=== PATIENT | female | born 1980 | race Two or more races ===

== ENCOUNTER 2017-08-05 17:38 | Emergency (ER) | payer MEDICAID ==
[~2017-08-05] VITALS: Ht 162.6 cm; Wt 77.1 kg
[2017-08-05 18:12] VITALS: BP 91/58
== END 2017-08-05 20:55 | disposition left against medical advice (07) ==
LOC: ER 17:38
DX: R07.0 Pain in throat (principal); R05 Cough; Z53.21 Procedure and treatment not carried out due to patient leaving prior to being seen by health care provider

== ENCOUNTER 2023-06-05 00:26 | Emergency (ER) | payer MEDICAID ==
[~2023-06-05] VITALS: Ht 160 cm; Wt 68.2 kg
[2023-06-05 00:39] VITALS: BP 140/66; RESP 17; O2SAT 99
[2023-06-05 00:45] VITALS: PULSE 98
[2023-06-05] MEDS ORDERED: ASPirin 81 mg TAB PO ONE (00:45)
[2023-06-05 01:02] LABS: Basophils # (auto) 0 10 ^3/uL (0-0.2); Basophils % (auto) 0.9 % (0.0-2.0); Eosinophils # (auto) 0.4 10 ^3/uL (0-0.8); Eosinophils % (auto) 6.5 % (0.0-7.0); Hematocrit 27.8 % (36.0-46.0); Hemoglobin 8.5 g/dL (12.2-16.2); Lymphocytes % (auto) 17.7 % (10.0-50.0); Mean Corpuscular Hemoglobin 20.8 pg (28.0-32.0); Mean Corpuscular Hgb Conc. 30.7 g/dL (32.0-36.0); Mean Corpuscular Volume 67.6 fL (80.0-100.0); Monocytes # (auto) 0.5 10 ^3/uL (0-1.3); Neutrophils # (auto) 3.6 10 ^3/uL (1.6-8.6); Neutrophils % (auto) 64.9 % (37.0-80.0); Nucleated Red Blood Cells % 0.1 %; Red Blood Cells 4.11 10^6/uL (4.0-5.20); Red Cell Distribution Width 18.8 % (11.8-14.3); White Blood Cell 5.5 10^3/uL (4.4-10.8)
[2023-06-05 01:10] LABS: Chloride 109 mmol/L (98-107); Potassium 3.6 mmol/L (3.5-5.1); Sodium 137 mmol/L (136-145)
[2023-06-05 01:11] LABS: Anion Gap 5 (5-15); Calcium 8.3 mg/dL (8.7-10.4); Carbon Dioxide 23 mmol/L (20-30)
[2023-06-05 01:16] LABS: Blood Urea Nitrogen 13 mg/dL (9-23); Glucose 112 mg/dL (74-106)
[2023-06-05 01:27] LABS: Hypochromia Marked; Platelet Estimate Adequate
[2023-06-05] MEDS ORDERED: IOHEXOL 350 MG/ML 100ML IJ ONE (03:22)
== END 2023-06-05 05:26 | disposition left against medical advice (07) ==
LOC: ER 00:26
DX: R07.89 Other chest pain (principal); J45.909 Unspecified asthma, uncomplicated
CPT/HCPCS: 36415; 71046; 80048; 85025; 85379; 93005

== ENCOUNTER 2024-12-29 14:00 | Emergency (ER) | payer MEDICAID, OTHER ==
[~2024-12-29] VITALS: Ht 160 cm; Wt 78.5 kg
--- NOTE | 2024-12-29 14:48 | ED.PDOC ---
SOB-HPI HPI Comments 44y F who presents to the ED for chief complaint of shortness of breath. Pt states she was outside walking with son in hot weather and states she started to have shortness of breath with associated chest wall pains and pain radiating to the L shoulder. Pt has noted history of asthma and uses her inhaler as needed but states she ran out of her inhaler and came to the ED for further evaluation. Pt in the ED, otherwise denies any other symptoms and no noted respiratory distress. pt noted to have 02 sat of 98% on room air. Pt denies any other symptoms at this time. 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 Family History Family History: Family hx of DM Social History Smoker: Non-Smoker Alcohol: Denies ETOH Use Drugs: Marijuana Lives In: Home Constitutional: denies: chills, diaphoresis, fatigue, fever, malaise, sweats, weakness, others EENTM: denies: blurred vision, double vision, ear bleeding, ear discharge, ear drainage, ear pain, ear ringing, eye pain, eye redness, hearing loss, mouth pain, mouth swelling, nasal discharge, nose bleeding, nose congestion, nose pain, photophobia, tearing, throat pain, throat swelling, voice changes, others Respiratory: reports: shortness of breath; denies: cough, hemoptysis, orthopnea, SOB at rest, SOB with excertion, stridor, wheezing, others Cardiovascular: denies: chest pain, dizzy spells, diaphoresis, Dyspnea on exertion, edema, irregular heart beat, left arm pain, lightheadedness, palpitations, PND, syncope, others Gastrointestinal: denies: abdomen distended, abdominal pain, blood streaked bowels, constipated, diarrhea, dysphagia, difficulty swallowing, hematemesis, melena, nausea, poor appetite, poor fluid intake, rectal bleeding, rectal pain, vomiting, others Genitourinary: denies: abnormal vagina bleeding, burning, dyspareunia, dysuria, flank pain, frequency, hematuria, incontinence, pain, , vagina discharge, urgency, others Neurological: denies: dizziness, fainting, headache, left sided numbness, left sided weakness, numbness, paresthesia, pre-existing deficit, right sided numbness, right sided weakness, seizure, speech problems, tingling, tremors, weakness, others Musculoskeletal: denies: back pain, gout, joint pain, joint swelling, muscle pain, muscle stiffness, neck pain, others Integumetry: denies: bruises, change in color, change in hair/nails, dryness, laceration, lesions, lumps, rash, wounds, others Allergic/Immunocompromised: denies: Difficulty Healing, Frequent Infections, Hives, Itching, others Hematologic/Lymphatic: denies: anemia, blood clots, easy bleeding, easy bruising, swollen glands, others Endocrine: denies: excessive hunger, excessive sweating, excessive thirst, excessive urination, flushing, intolerance to cold, intolerance to heat, unexplained weight gain, unexplained weight loss, others Psychiatric: denies: anxiety, bipolar disorder, depression, hopeless, panic disorder, schizophrenia, sleepless, suicidal, others All Other Systems: Reviewed and Negative Physical Exam General Appearance: No Apparent Distress, Normal HEENT: Normal ENT Inspection, Pharynx Normal, TMs Normal Neck: Full Range of Motion, Non-Tender, Normal, Normal Inspection Respiratory: Chest Non-Tender, No Accessory Muscle Use, No Respiratory Distress, Other (Bilateral end expiratory wheezes, good air flow) Cardiovascular: No Edema, No JVD, No Murmur, No Gallop, Normal Peripheral Pulses, Regular Rate/Rhythm Breast Exam: Deferred Gastrointestinal: No Organomegaly, Non Tender, No Pulsatile Mass, Normal Bowel Sounds, Soft Genitalia: Deferred Pelvic: Deferred Rectal: Deferred Extremities: No calf tenderness, Normal capillary refill, Normal inspection, Normal range of motion, Non-tender, No pedal edema Musculoskeletal : Apperance: Normal Neurologic: Alert, physical therapist assistant II-XII nml as Tested, No Motor Deficits, Normal Affect, Normal Mood, No Sensory Deficits Cerebellar Function: Normal Reflexes: Normal Skin: Dry, Normal Color, Warm Lymphatic: No Adenopathy Was a procedure done? Was a procedure done?: No Differential Dx Differential Diagnosis: Asthma, Bronchitis, Pneumonia, Respiratory Distress, Pharyngitis, URI X-Ray, Labs, Meds, VS Vital Signs Date Time Temp Pulse Resp B/P (MAP) Pulse Ox O2 Delivery O2 Flow Rate FiO2 12/29/24 16:47 98.7 88 16 129/89 (102) 99 98.7 12/29/24 16:47 88 16 99 Room Air 12/29/24 14:56 20 100 Room Air* 0 21 12/29/24 14:14 98 12/29/24 14:01 97.5 111 24 141/76 98 97.5 Current Medications Medications (Trade) Dose Ordered Sig/Agus Route Start Time Stop Time Status Last Admin Albuterol (Ventolin Medneb) 5 mg ONCE ONCE NEB 12/29/24 14:45 12/29/24 14:46 DC 12/29/24 14:56 Ipratropium [place] (Atrovent Medneb) 1 mg ONCE ONCE HHN 12/29/24 14:45 12/29/24 14:46 DC 12/29/24 14:56 Prednisone 40 mg ONCE ONCE PO 12/29/24 14:45 12/29/24 14:46 DC 12/29/24 16:45 X-Ray, Labs, Meds, VS Comment Patient presentation is most consistent with acute asthma exacerbation for which the patient has received albuterol, ipratropium, steroids with significant improvement in his pulmonary exam and symptoms. Patient now without hypoxia or tachypnea and able to ambulate without shortness of breath. Given these findings, will plan to discharge the patient home with close PMD follow-up within 1-2 weeks. Patient will be discharged with prescription for albuterol, spacer training, 4 day course of prednisone. Reviewed return precautions including, but not limited to worsening tachypnea, fever > 100.4, and altered mental status. Patient is in agreement with the plan and all questions have been answered. Considered CHF exacerbation, pneumonia, anaphylaxis, pulmonary embolism, DKA, pneumothorax, tamponade, but consider these to be less likely based on history/physical/evaluation as above. Time of 1ST Reevaluation: 15:30 Reevaluation 1ST: Improved Time of 2ND Reevaluation: 17:32 Reevaluation 2ND: Improved Patient Education/Counseling: Diagnosis, Treatment Family Education/Counseling: No Family Present SEPSIS Sepsis Screen Date sepsis recognized/suspect: Dec 29, 2024 Time Sepsis recognized/suspect: 1403 Recent Procedure: No On Antibiotic Therapy: No Respiratory Rate >20: Yes Heart Rate >90: Yes Temp<36 C (96.8 F) or >38.3 C: No SBP <90 or MAP <65 mmHG: No New Acute Mental Status Change: No Is the patient on CPAP, BIPAP,: No Physician Orders Electrocardigram (12/29/24 14:19) Vital Signs Date Time Temp Pulse Resp B/P (MAP) Pulse Ox O2 Delivery O2 Flow Rate FiO2 12/29/24 16:47 98.7 88 16 129/89 (102) 99 98.7 12/29/24 16:47 88 16 99 Room Air 12/29/24 14:56 20 100 Room Air* 0 21 12/29/24 14:14 98 12/29/24 14:01 97.5 111 24 141/76 98 97.5 Medications Medications Dose Ordered Sig/Agus Route Start Time Stop Time Status Last Admin Dose Admin Albuterol 5 mg ONCE ONCE NEB 12/29/24 14:45 12/29/24 14:46 DC 12/29/24 14:56 Ipratropium [place] 1 mg ONCE ONCE HHN 12/29/24 14:45 12/29/24 14:46 DC 12/29/24 14:56 Prednisone 40 mg ONCE ONCE PO 12/29/24 14:45 12/29/24 14:46 DC 12/29/24 16:45 Departure 1 Departure Time of Disposition: 17:33 Impression: Primary Impression: Asthma exacerbation Disposition: 01 HOME / SELF CARE / HOMELESS Condition: Stable e-Prescriptions Albuterol Sulfate (VENTOLIN MDI) 90 Mcg Ih 90 MCG IN Q4HPRN PRN for 5 Days, #1 INH Prov: KAREEM MEDEL MD 12/29/24 Prednisone (Prednisone) 20 Mg Tab 40 MG PO DAILY for 4 Days, #8 TAB Prov: KAREEM MEDEL MD 12/29/24 Discharged With: Self Critical Care Note Critical Care Time?: No Stability Stability form required: No Heart Score Heart Score: Heart Score Response (Comments) Value History N/A 0 EKG N/A 0 Age N/A 0 Risk Factors N/A 0 Troponin N/A 0 Total 0 I personally scribed for KAREEM MEDEL MD ([email or web address]) on 12/29/24 at 14:48. Electronically submitted by Yumiko Craven ([facility] [place]). KAREEM MEDEL MD Dec 29, 2024 14:48
[2024-12-29] MEDS: ALBUTEROL SULF 2.5 MG/0.5ML(0.5%) NEB SOLN NEB ONE (14:56)
[2024-12-29] MEDS: IPRATROPIUM BROM 0.5 MG/2.5ML INH SOL HHN ONE (14:56)
[2024-12-29] MEDS: predniSONE 20 MG TAB PO ONE (16:45)
[2024-12-29 16:47] VITALS: BP 129/89; PULSE 88; RESP 16; TEMP 98.7; O2SAT 99
[2024-12-29] MEDS ORDERED: PRED20TA2 PO (17:30)
[2024-12-29] MEDS ORDERED: ALBUAER3 IN (17:30)
--- NOTE | 2025-01-01 10:59 | ECG ---
[facility] Test Date: 2024-12-29 Test Time: 14:14:31 Pat Name: NANCY NAVARRO Department: ED Room: Gender: F Licensed Mental Health Professional: MELONY : 1980 Requested By: KAREEM MEDEL Order Number: [id number] Reading MD: Wil Whitehead Measurements Intervals [place] Rate: 98 P: 54 ID: [id number] QRS: 58 QRSD: 80 T: 57 QT: 357 QTc: 456 Interpretive Statements Sinus rhythm Probable left atrial enlargement Electronically Signed On 01-01-2025 13:11:18 PDT by Wil Whitehead Please click the below link to view image of tracing.
== END 2024-12-29 18:57 | disposition home or self-care (01) ==
LOC: ER 14:00
DX: J45.901 Unspecified asthma with (acute) exacerbation (principal); F12.90 Cannabis use, unspecified, uncomplicated
CPT/HCPCS: 93005; 94640; 99283; J7512